=== PATIENT | male | born 1995 | race Caucasian/White ===

== ENCOUNTER 2019-03-16 20:39 | Emergency (ER) | payer OTHER ==
[~2019-03-16] VITALS: Ht 175.3 cm; Wt 106.3 kg
[2019-03-16 22:20] LABS: BASO # 0.1 10^3/uL (0.0-0.2); BASO % 0.6 % (0.0-1.0); EOS # 0.4 10^3/uL (0.0-0.50); EOS % 3.8 % (0.0-3.0); HEMATOCRIT 43.2 % (42.0-52.0); HEMOGLOBIN 15.4 g/dl (13.5-17.5); LYMPH # 3.4 10^3/uL (1.5-6.5); LYMPH % 34.6 % (24.0-44.0); MEAN CORPUSCULAR HEMOGLOBIN 32.1 pg (27.0-33.0); MEAN CORPUSCULAR HGB CONC 35.6 g/dl (32.0-36.5); MONO # 0.8 10^3/uL (0.0-0.8); MONO % 8.7 % (0.0-5.0); NEUTROPHILS % 51.9 % (36.0-66.0); PLATELET COUNT, AUTOMATED 223 10^3/uL (150-450); WHITE BLOOD COUNT 9.7 10^3/uL (4.0-10.0)
[2019-03-16 22:45] LABS: ALBUMIN 4.3 GM/DL (3.2-5.2); ALT/SGPT 56 U/L (12-78); BILIRUBIN,TOTAL 0.3 MG/DL (0.2-1.0); BLOOD UREA NITROGEN 21 MG/DL (7-18); CALCIUM LEVEL 9.2 MG/DL (8.5-10.1); CARBON DIOXIDE LEVEL 28 MEQ/L (21-32); CHLORIDE LEVEL 108 MEQ/L (98-107); GLOMERULAR FILTRATION RATE > 60.0 (>60); GLUCOSE, FASTING 92 MG/DL (70-100); POTASSIUM SERUM 4.1 MEQ/L (3.5-5.1); SODIUM LEVEL 141 MEQ/L (136-145); TOTAL PROTEIN 7.3 GM/DL (6.4-8.2)
[2019-03-16] MEDS ORDERED: NAPR-837 PO (23:18)
[2019-03-16 23:34] VITALS: BP 133/84
--- NOTE | 2019-03-17 06:35 | ECGEPIP ---
[facility] - ED Test Date: 2019-03-16 Pat Name: MALLY CHAN Department: Room: - Gender: Male [employer]itter: ct : 1995 Requested By: TOMAS Jain Order Number: [id number] Reading MD: Rm Weston Measurements Intervals [place] Rate: 56 P: 36 PA: 166 QRS: 69 QRSD: 103 T: 34 QT: 386 QTc: 375 Interpretive Statements SINUS BRADYCARDIA NO PRIOR ECG FOR COMPARISON Electronically Signed on 03-17-2019 6:35:27 EDT by Rm Weston
--- NOTE | 2019-03-18 12:06 | REP ---
CHEST PA AND LATERAL: 03/16/2019. Clinical history: Chest pain, right side. Findings: No prior studies. Two-view show the lung sandra well inflated. There is no effusion, lateral pleural thickening, apical scarring or pneumothorax. No infiltrate, atelectasis or mass. Heart, mediastinal and hilar contours, aorta and airway all intact. No widening of that mediastinum. Bony thorax shows no acute finding. No free air under the diaphragm. Impression: 1. No acute cardiopulmonary change. No visible fracture, pneumothorax, effusion or other acute finding. Electronically Signed by Henri Daly MD 03/18/2019 12:22 P
== END 2019-03-16 23:35 | disposition home or self-care (01) ==
LOC: M ED 20:39
DX: R07.89 Other chest pain (principal); R94.31 Abnormal electrocardiogram [ECG] [EKG]; F17.200 Nicotine dependence, unspecified, uncomplicated; Z82.49 Family history of ischemic heart disease and other diseases of the circulatory system